=== PATIENT | female | born 1980 | race Caucasian/White ===

== ENCOUNTER 2021-09-15 16:14 | Emergency (ER) | payer OTHER, MEDICAID, SELFPAY ==
[2021-09-15 16:20] VITALS: BP 132/68; PULSE 82; O2SAT 100
--- NOTE | 2021-09-15 16:21 | ED_ITS ---
HPI - Extremity Problem General Chief complaint: Extremity Problem,Nontraumatic Stated complaint: POSS BLOOD CLOT RT LEG Time Seen by Provider: 09/15/21 16:21 History of Present Illness HPI Narrative: 41-year-old female nonsmoker with history of 2 prior DVTs presents with a chief complaint of some pain in her right medial thigh and concern about another DVT. She states it feels similar to prior. She has no chest pain or shortness of breath. She is not dizzy nor weak or lightheaded. She has no shortness of breath and has had no fever, chills or cough. She denies any injury or overuse. She denies any swelling or discoloration she states the pain has been present for the past few days and seems to be worse when she palpates or moves her right leg. The 2 prior DVTs were after a and the 2nd was in the aftermath of a vein stripping on that same leg. At 1 point she did have an extensive workup and was thought to have a protein S deficiency but reports that on of follow-up workup that was found to not be the case. She is otherwise well and free of complaint. Related Data Previous Rx's Medication Instructions Recorded alprazolam 0.25 mg tablet 0.25 mg OR SEE INSTRUCTIONS #5 05/03/16 sertraline 50 mg tablet (Zoloft) 50 mg PO QDAY #30 tab 05/03/16 Review of Systems Review of Systems Narrative: GENERAL: Denies chills, fatigue, malaise, fever, sweats. HEENT: Denies sinus pain, ear pain, sore throat, difficulty swallowing, dizziness. RESPIRATORY: Denies dyspnea, cough, wheezing, hemoptysis, sputum. CARDIOVASCULAR: Denies chest pain, palpitations, orthopnea, edema, GASTROINTESTINAL: Denies nausea, vomiting, abdominal pain, diarrhea, constipation, melena. : Denies dysuria, frequency, incontinence, hematuria, urinary retention. MUSCULOSKELETAL: See HPI SKIN: Denies rash, skin lesions, or other NEUROLOGIC: Denies weakness, headache, numbness, change in speech, confusion, seizures, incoordination. PSYCHIATRIC: No concerning psychosocial issues. 12 point review of systems is negative except for those stated above Patient History Social History Smoking Status: Never smoker Exam Narrative Exam Narrative: GEN: AOx3 and in mild distress EYES: Pupils are equal, round, and reactive to light and accommodation. Extraoccular muscles are intact bilaterally. There is no subconjunctival hemorrhage or exudate. CHEST: Lungs are clear to auscultation bilaterally and free of wheezes, rales, or rhonchi. Heart rate is regular rhythm, there are no murmurs, clicks, rubs, or gallops. There is no chest wall tenderness. ABD: Abdomen is soft and nontender. There is no guarding or rebound. Bowel sounds are normal in all 4 quadrants. There is no mass or organomegaly. EXT: Full, but slightly painful range of motion at the right knee, no obvious swelling, redness or obvious external suggestion of illness or disease. There is some tenderness to palpation along the medial thigh proximal to the knee. SKIN: Warm, pink, and dry. No erythema or rash Initial Vital Signs Initial Vital Signs: Vital Signs Pulse Rate 82 09/15/21 16:20 Blood Pressure 132/68 09/15/21 16:20 Pulse Oximetry 100 09/15/21 16:20 Course Orders Ordered: ED Orders 09/15/21 16:22 US periph venous low extrem rt Stat 09/15/21 16:25 EKG-12 Lead Stat Vital Signs Vital signs: Vital Signs - 8 hr 09/15/21 16:20 09/15/21 16:30 09/15/21 17:00 Pulse Rate 82 82 92 H Blood Pressure 132/68 114/58 L 124/74 Pulse Oximetry 100 100 100 Discharge Plan Departure Patient Disposition: Home Clinical Impression: Acute pain of right lower extremity Instructions: DI for Leg Pain Activity Restrictions/Additional Instructions: *You have been diagnosed with [right lower extremity pain. Your history, physical exam and ultrasound would suggest there is no DVT. *What to do: *Please consider the use of warm compresses and anti-inflammatories to help with your discomfort. *Please follow up with your primary care provider in 2-3 days, call for an appointment. Let them know you were seen in the Emergency Department and that we ask that you be seen in follow up. We will electronically transmit a record of today's note if your PCP is in our system *If you do not have a primary care provider please contact the [facility] Resource line at [phone]. They will ask some questions about your medical history and help get you set up with a doctor in the community. *Return to Emergency Department if you should have any new, worsening or concerning symptoms, such as [fever greater than 101 F, shaking chills, worsening pain, persistent vomiting or other bothersome symptoms] Prescriptions: No Action alprazolam 0.25 MG tablet 0.25 mg OR SEE INSTRUCTIONS Qty: 5 1RF sertraline [Zoloft] 50 MG tablet 50 mg PO QDAY Qty: 30 5RF
--- NOTE | 2021-09-15 16:22 | DI.US.S_ITS ---
PROCEDURE: US PERIPH VENOUS LOW EXTREM RT INDICATIONS: PAIN; HX DVT, PROTEIN S DEFICIENCY TECHNIQUE: Real-time imaging, as well as color and pulse Doppler interrogation, were performed of the lower extremity deep veins from the inguinal ligament to the popliteal fossa. COMPARISON: None. FINDINGS: The common femoral, femoral and popliteal veins are normally compressible, and free of intraluminal thrombus. Color and pulse Doppler demonstrate normal phasic intraluminal flow. There is normal augmentation response to distal compression maneuver. The greater saphenous vein is surgically absent. IMPRESSION: No DVT in the right lower extremity. Dictated by: Juancho Garcia M.D. on 09/15/2021 at 16:16 Approved by: Juancho Garcia M.D. on 09/15/2021 at 16:17
[2021-09-15 16:23] VITALS: BMI 18.6
[2021-09-15 16:30] VITALS: BP 114/58; PULSE 82; O2SAT 100
[2021-09-15 17:00] VITALS: BP 124/74; PULSE 92; O2SAT 100
== END 2021-09-15 17:16 | disposition home or self-care (01) ==
PROVIDERS: Emergency Provider Emergency Medicine
DX: M79.604 Pain in right leg (principal); Z86.718 Personal history of other venous thrombosis and embolism
CPT/HCPCS: 93005; 93010; 93971; 99283; 99284

== ENCOUNTER 2024-12-03 19:39 | Emergency (ER) | payer OTHER, SELFPAY ==
[2024-12-03 20:04] VITALS: BP 131/70; PULSE 94; RESP 16; TEMP 36.9; O2SAT 99
--- NOTE | 2024-12-03 20:17 | ED_ITS ---
HPI - Extremity Problem General Chief complaint: Extremity Problem,Nontraumatic Stated complaint: think I have blood clot in knee Time Seen by Provider: 12/03/24 20:16 Source: patient Mode of arrival: Ambulatory History of Present Illness HPI Narrative: 44-year-old female with history of prior DVT x2 episodes, both were provoked, 1 was , 1 was after venous vein stripping procedure, no chronic anticoagulation taken, now with nontraumatic right knee anterior and posterior discomfort since yesterday. No chest pain or shortness of breath. No swelling of the lower extremity. No instability or locking sensation of the right knee. No swelling of the knee joint suspected. No fevers or chills. No redness or skin changes. No fall, trauma, new activities recalled. No fevers or chills. Patient concerned about possible recurrence of blood clot. Related Data Home Medications Medication Instructions Recorded Confirmed No Known Home Medications 12/03/24 12/03/24 Allergies Allergy/AdvReac Type Severity Reaction Status Date / Time No Known Drug Allergies Allergy Verified 12/03/24 20:03 Patient History Social History Smoking Status: Never smoker Smoking Status: Never smoker Exam Narrative Exam Narrative: GENERAL: Well-developed patient, in mild distress. HEAD: Atraumatic. Normocephalic. EYES: Pupils equal round and reactive. Extraocular motions intact. No scleral icterus. No injection or drainage. ENT: Nose without bleeding, purulent drainage. Throat without erythema, tonsillar hypertrophy or exudate. Airway patent. NECK: Trachea midline. Non tender CARDIOVASCULAR: Regular rate and rhythm without murmurs, gallops, or rubs. RESPIRATORY: Clear to auscultation. Breath sounds equal bilaterally. No wheezes, rales, or rhonchi. GASTROINTESTINAL: Abdomen soft, non-tender, nondistended. EXTREMITIES: No edema or joint tenderness. Right anterior knee without gross effusion or deformity, no tenderness to medial joint line or lateral joint line, no tenderness to patellar tendon or anterior patellar bursal region, no redness to skin, no gross knee effusion, Hilario's with good end point, no pain or laxity with varus stress or valgus stress to the knee. No posterior tenderness or cords. No lower extremity edema, negative Homans. No tenderness along Achilles tendon, no limb length discrepancy. BACK: Nontender without deformity or crepitance. No flank tenderness. NEURO: AOx3. Motor functions grossly nonfocal SKIN: No rash or erythema of visible areas Initial Vital Signs Initial Vital Signs: Vital Signs Temperature 98.5 F 12/03/24 20:04 Pulse Rate 94 H 12/03/24 20:04 Respiratory Rate 16 12/03/24 20:04 Blood Pressure 131/70 12/03/24 20:04 Pulse Oximetry 99 12/03/24 20:04 Oxygen Delivery Method Room Air 12/03/24 20:04 Course Orders Ordered: ED Orders 12/03/24 21:00 CBC Auto Diff [Complete Blood Count AUTO DIFF] Stat CMP [Comprehensive Metabolic Panel] Stat Prothrombin Time INR Stat Discontinued Medications Ibuprofen (Ibuprofen 400 Mg Tablet) 400 mg PO NOW ONE Stop: 12/03/24 20:30 Last Admin: 12/03/24 21:08 Dose: 400 mg Documented By: DARREN Vital Signs Vital signs: Vital Signs - 8 hr 12/03/24 20:04 12/03/24 21:11 12/03/24 21:14 Temperature 98.5 F Pulse Rate 94 H 89 84 Respiratory Rate 16 16 Blood Pressure 131/70 115/62 Pulse Oximetry 99 97 96 Oxygen Delivery Method Room Air Room Air MDM - Extremity (Nontraumatic) Lab Data 12/03/24 21:00 12/03/24 21:00 Labs: Lab Results 12/03/24 Range/Units 21:00 WBC 7.8 (4.5-11.0) X10^3/uL RBC 4.75 (4.0-5.2) X10^6/uL Hgb 14.1 (12.0-16.0) g/dL Hct 40.8 (36-46) % MCV 86.0 (80-100) fL MCH 29.6 (26-34) PG MCHC 34.5 (30-36) % RDW 12.7 (11.6-14.8) % Plt Count 197 (150-400) X10^3/uL Neut % (Auto) 55.3 (50-75) % Lymph % (Auto) 35.7 (25-40) % [place] % (Auto) 6.1 (3-14) % Eos % (Auto) 2.3 (2-4) % Baso % (Auto) 0.6 (0-2) % Neut # (Auto) 4300 (6838-0897) /uL Lymph # (Auto) 2800 (1594-2102) /uL [place] # (Auto) 500 (0-900) /uL Eos # (Auto) 200 (0-450) /uL Baso # (Auto) 0 (0-100) /uL PT 12.8 H (9.4-12.5) SECONDS INR 1.1 (0.9-1.3) Sodium 139 (137-145) mmol/L Potassium 3.9 (3.4-5.1) mmol/L Chloride 107 (98-107) mmol/L Carbon Dioxide 26 (22-32) mmol/L BUN 16 (7-17) mg/dL Creatinine 1.04 (0.52-1.04) mg/dL Estimated GFR > 60 (>60) mL/min BUN/Creatinine Ratio 15.4 (6-22) Glucose 100 (70-100) mg/dL Calcium 8.7 (8.4-10.2) mg/dL Total Bilirubin 0.5 (0.2-1.3) mg/dL AST 28 (14-36) IU/L ALT 20 (<35) IU/L Alkaline Phosphatase 51 (38-126) U/L Total Protein 6.8 (6.3-8.2) g/dL Albumin 4.1 (3.5-5.0) g/dL Globulin 2.7 (1.7-4.1) g/dL Albumin/Globulin Ratio 1.5 (1.0-2.8) Imaging Data Extremity x-ray #1: Radiologist's Impression: [address] [address] XRay Report Signed Patient: Ashly Castañeda MR#: [id number] : 1980 Acct:[id number] Age/Sex: 44 / F Date of Service: 12/03/24 Loc: ED Accession Number: [id number] Procedure: XR knee RT 3V Ordering Provider: Davon Eisenberg MD PROCEDURE: XR KNEE RT 3V INDICATIONS: right knee pain, no injury known TECHNIQUE: 3 views of the knee were acquired. COMPARISON: None. FINDINGS: Bones: No fractures or dislocations. No significant patellar subluxation. No suspicious bony lesions. Soft tissues: No joint effusion. No suspicious soft tissue calcifications. IMPRESSION: No acute right knee fracture or dislocation. No significant joint effusion. Dictated by: Douglas Pena M.D. on 12/03/2024 at 20:51 Approved by: Douglas Pena M.D. on 12/03/2024 at 20:51 Right lower extremity venous Doppler: Radiologist's Impression: [address] [address] Ultrasound Report Signed Patient: Ashly Castañeda MR#: [id number] : 1980 Acct:[id number] Age/Sex: 44 / F Date of Service: 12/03/24 Loc: ED Accession Number: [id number] Procedure: perip venous low extrem rt Ordering Provider: Davon Eisenberg MD PROCEDURE: US PERIP VENOUS LOW EXTREM RT INDICATIONS: hx DVT prior, nontraumatic RLE pain swelling TECHNIQUE: Real-time imaging, as well as color and pulse Doppler interrogation, were performed of the lower extremity deep veins from the inguinal ligament to the popliteal fossa, with documentation of the visualized calf veins. COMPARISON: None. FINDINGS: The common femoral, femoral, popliteal, and the visualized calf veins are normally compressible, and free of intraluminal thrombus. Color and pulse Doppler demonstrate normal phasic intraluminal flow. There is normal augmentation response to distal compression maneuver. IMPRESSION: No evidence of DVT in visualized right lower extremity veins. Dictated by: Douglas Pena M.D. on 12/03/2024 at 21:13 Approved by: Douglas Pena M.D. on 12/03/2024 at 21:13 [facility] Narrative Medical decision making narrative: 44-year-old female with history of provoked DVT 2 episodes, no longer on chronic anticoagulation, now with nontraumatic right knee front and back discomfort, concerned about blood clot. Ultrasound ordered, negative for DVT. X-ray right knee unremarkable. On examination patient has stable knee exam, no medial or lateral joint line tenderness, some tenderness along the superior aspect of the patella, not particularly tender posteriorly. Clinically sounds more likely to be anterior knee pain and not DVT. Copies of the imaging reports provided the patient. Follow up with PCP advised. Declined compression, declined crutches. Consider rest, ice, elevation, [id number] NSAIDs. Follow up with PCP next week if symptoms persist. Discharge Plan Departure Patient Disposition: Home Clinical Impression: Pain in right knee Activity Restrictions/Additional Instructions: Ms Castañeda, You have history of prior blood clots to the legs that were provoked in nature, 1 time , another time after vascular surgical procedure. Now with nontraumatic right-sided knee pain anterior and posterior components. On examination there does not seem to be any palpable cords, no redness to the skin, on knee ligamentous exam the anterior cruciate seems quite solid with good end point, no tenderness along medial joint line or lateral joint line, no gross knee effusion by examination, no tenderness particularly around the patella or along the patellar tendon insertion. Ultrasound Doppler venous study showed no evidence of clot today. X-ray showed no acute abnormality or arthritic changes of your right knee region. There was no mention of any posterior knee area Charles cyst on the ultrasound, which is sometimes incidentally mentioned. Your anterior right knee symptoms seemed to be more superior to the kneecap/patella, perhaps you have an occult strain or perhaps this is represents a form of tendinitis as cause of your discomfort. Consider rest, ice, elevation, [id number] anti-inflammatory medication such as ibuprofen. We discussed crutches, declined. Consider recheck with your regular doctor if symptoms persist this next week. Return to this/nearest emergency department for any change or worsening or any concerns prior. Thank you for allowing our team to evaluate you today. Prescriptions: No Action No Known Home Medications Referrals: Doctor Rosales MD [Primary Care Provider] - Stand Alone Forms: Patient Portal/API/Survey
--- NOTE | 2024-12-03 20:26 | DI.RAD.S_ITS ---
PROCEDURE: XR KNEE RT 3V INDICATIONS: right knee pain, no injury known TECHNIQUE: 3 views of the knee were acquired. COMPARISON: None. FINDINGS: Bones: No fractures or dislocations. No significant patellar subluxation. No suspicious bony lesions. Soft tissues: No joint effusion. No suspicious soft tissue calcifications. IMPRESSION: No acute right knee fracture or dislocation. No significant joint effusion. Dictated by: Douglas Pena M.D. on 12/03/2024 at 20:51 Approved by: Douglas Pena M.D. on 12/03/2024 at 20:51
[2024-12-03 21:07] LABS: Add Manual Diff / Slide Review NO; Basophils Absolute Auto 0 /uL (0-100); Basophils Percent Auto 0.6 % (0-2); Eosinophils Absolute Auto 200 /uL (0-450); Eosinophils Percent Auto 2.3 % (2-4); Hematocrit 40.8 % (36-46); Hemoglobin 14.1 g/dL (12.0-16.0); Lymphocytes Absolute Auto 2800 /uL (1100-4500); Lymphocytes Percent Auto 35.7 % (25-40); Mean Corpuscular HGB Conc 34.5 % (30-36); Mean Corpuscular Hemoglobin 29.6 PG (26-34); Monocytes Absolute Auto 500 /uL (0-900); Monocytes Percent Auto 6.1 % (3-14); Neutrophils Absolute Auto 4300 /uL (1500-7000); Neutrophils Percent Auto 55.3 % (50-75); Platelet Count 197 X10^3/uL (150-400); Red Blood Cell Count 4.75 X10^6/uL (4.0-5.2); Red Cell Distribution Width 12.7 % (11.6-14.8); White Blood Cell Count 7.8 X10^3/uL (4.5-11.0)
[2024-12-03] MEDS: IBUPROFEN 400 MG TABLET PO (21:08)
[2024-12-03 21:11] VITALS: PULSE 89; O2SAT 97
[2024-12-03 21:14] VITALS: BP 115/62; PULSE 84; RESP 16; O2SAT 96
[2024-12-03 21:15] LABS: INR 1.1 (0.9-1.3); Prothrombin Time 12.8 SECONDS (9.4-12.5)
[2024-12-03 21:19] LABS: Alanine Aminotransferase 20 IU/L (<35); Albumin 4.1 g/dL (3.5-5.0); Albumin Globulin Ratio 1.5 (1.0-2.8); Alkaline Phosphatase 51 U/L (38-126); Aspartate Aminotransferase 28 IU/L (14-36); BUN Creatinine Ratio 15.4 (6-22); Bilirubin Total 0.5 mg/dL (0.2-1.3); Blood Urea Nitrogen 16 mg/dL (7-17); Calcium 8.7 mg/dL (8.4-10.2); Carbon Dioxide 26 mmol/L (22-32); Chloride 107 mmol/L (98-107); Estimated Glomerular Filt Rate > 60 mL/min (>60); Globulin 2.7 g/dL (1.7-4.1); Glucose 100 mg/dL (70-100); HEMOLYSIS < 15 (0-50); Potassium 3.9 mmol/L (3.4-5.1); Sodium 139 mmol/L (137-145); Total Protein 6.8 g/dL (6.3-8.2)
== END 2024-12-03 21:37 | disposition home or self-care (01) ==
PROVIDERS: Emergency Provider Emergency Medicine
DX: M25.561 Pain in right knee (principal); Z86.718 Personal history of other venous thrombosis and embolism
CPT/HCPCS: 73562; 80053; 85025; 85610; 93971; 99284